=== PATIENT | male | born 1985 | race African-American/Black ===

== ENCOUNTER 2018-11-05 09:22 | Emergency (ER) | payer BC ==
[~2018-11-05] VITALS: Ht 190.5 cm; Wt 132.0 kg
[2018-11-05] MEDS ORDERED: KETOROLAC 30MG/ML VIAL IM ONE (10:15)
[2018-11-05] MEDS ORDERED: AMOXICILLIN 500 MG CAPSULE PO ONE (10:15)
[2018-11-05 10:44] VITALS: BP 160/99
== END 2018-11-05 10:46 | disposition home or self-care (01) ==
LOC: ER 09:48
DX: K04.7 Periapical abscess without sinus (principal)
CPT/HCPCS: 96372; 99283; J1885

== ENCOUNTER 2019-08-11 09:45 | Emergency (ER) | payer BC, OTHER ==
[~2019-08-11] VITALS: Ht 190.5 cm; Wt 91.0 kg
[2019-08-11] MEDS ORDERED: KETOROLAC 60MG/2ML VIAL IM ONE (11:00)
[2019-08-11 13:30] VITALS: BP 178/120
== END 2019-08-11 13:53 | disposition home or self-care (01) ==
LOC: ER 10:05
DX: M79.662 Pain in left lower leg (principal)
CPT/HCPCS: 76881; 96372; 99283; J1885

== ENCOUNTER 2019-08-14 11:46 | Emergency (ER) | payer OTHER ==
[~2019-08-14] VITALS: Ht 190.5 cm; Wt 131.0 kg
[2019-08-14] MEDS ORDERED: IBUPROFEN 600MG TABLET PO ONE (13:00)
[2019-08-14 14:35] VITALS: BP 167/94
== END 2019-08-14 14:38 | disposition home or self-care (01) ==
LOC: ER 11:46
DX: T14.8XXA Other injury of unspecified body region, initial encounter (principal); X58.XXXA Exposure to other specified factors, initial encounter; Y93.89 Activity, other specified; Y92.89 Other specified places as the place of occurrence of the external cause; Y99.8 Other external cause status
CPT/HCPCS: 29515; 73610; 99283

== ENCOUNTER → 2019-08-17 | Outpatient (CLI) | payer BC ==
[2019-08-17 15:44] LABS: BASOPHILS % 1.2 % (0.0-2.0); EOSINOPHILS % 2.6 % (0.0-5.0); HEMATOCRIT. 46.2 % (42.0-52.0); HEMOGLOBIN. 16.1 g/dL (14.0-18.0); LYMPHOCYTES % 38.5 % (20.0-50.0); MEAN CORPUSCULAR HEMOGLOBIN 27.6 pg (28.0-32.0); MEAN PLATELET VOLUME 8.7 fl (7.4-10.4); MONOCYTES % 8.7 % (2.0-8.0); PLATELET 287 x1000/uL (130-400); RED BLOOD CELL COUNT 5.85 mill/uL (4.7-6.1); RED CELL DISTRIBUTION WIDTH 13.4 % (11.6-14.6)
[2019-08-17 15:47] LABS: CHLORIDE 106 mEq/L (98-107)
[2019-08-17 15:55] LABS: LDL CHOLESTEROL 203 mg/dL (5-100)
[2019-08-17 15:56] LABS: HDL CHOLESTEROL 36 mg/dL (40-59)
[2019-08-17 15:57] LABS: T4 FREE 1.04 ng/dL (0.76-1.46)
== END | disposition home or self-care (01) ==
LOC: LAB 15:10
PROVIDERS: ATTEND Specialist
DX: E11.8 Type 2 diabetes mellitus with unspecified complications (principal); D64.9 Anemia, unspecified
CPT/HCPCS: 36415; 80053; 80061; 82306; 83036; 84439; 84443; 84481; 85025

== ENCOUNTER → 2019-08-23 | Outpatient (CLI) | payer OTHER | END | disposition home or self-care (01) | LOC: MRI 09:03 | PROVIDERS: ATTEND Family Medicine Adult Medicine | DX: S86.012A Strain of left Achilles tendon, initial encounter (principal); X58.XXXA Exposure to other specified factors, initial encounter; Y93.89 Activity, other specified; Y92.89 Other specified places as the place of occurrence of the external cause; Y99.8 Other external cause status | CPT/HCPCS: 73721 ==

== ENCOUNTER 2021-02-03 08:54 | Inpatient (IN) | payer BC, OTHER ==
[~2021-02-03] VITALS: Ht 190.5 cm; Wt 149.1 kg
[2021-02-03] MEDS ORDERED: HYDROCHLOROTHIAZIDE 25MG TABLET PO ONE (09:15)
[2021-02-03 10:31] LABS: BASOPHILS % 0.8 % (0.0-2.0); EOSINOPHILS % 2.8 % (0.0-5.0); HEMATOCRIT. 46.9 % (42.0-52.0); HEMOGLOBIN. 16.4 g/dL (14.0-18.0); LYMPHOCYTES % 37.6 % (20.0-50.0); MEAN CORPUSCULAR VOLUME 80.4 fL (80.0-94.0); MEAN PLATELET VOLUME 8.7 fl (7.4-10.4); MONOCYTES % 7.3 % (2.0-8.0); NEUTROPHILS % 51.5 % (40.0-76.0); PLATELET 226 x1000/uL (130-400); RED BLOOD CELL COUNT 5.84 mill/uL (4.7-6.1)
[2021-02-03 10:34] LABS: CHLORIDE 106 mEq/L (98-107)
[2021-02-03] MEDS ORDERED: ASPIRIN 81MG TABLET PO NR (15:15)
[2021-02-03] MEDS ORDERED: HYDROCODONE/ACETAMINOPHEN 5/325MG TABLET PO PRN (18:30)
[2021-02-03] MEDS ORDERED: ACETAMINOPHEN 325MG TABLET PO PRN (18:30)
[2021-02-03] MEDS ORDERED: ONDANSETRON HCL 4MG/2ML INJ IV PRN (18:30)
[2021-02-03] MEDS: AMLODIPINE 10MG TABLET PO SCH (18:49)
[2021-02-03 20:00] VITALS: BP_SYST 175; BP_SYST 93; BP_DIAS 109; BP_DIAS 70
[2021-02-03] MEDS: CLONIDINE 0.1MG TABLET PO PRN (20:22)
[2021-02-03] MEDS: ENOXAPARIN 30MG/0.3ML SYR SUBCUT SCH (21:28)
[2021-02-03] MEDS: HYDRALAZINE HCL 50MG TABLET PO SCH (22:22)
[2021-02-04] VITALS (7 sets, daily range): BP systolic 144–170; BP diastolic 82–108
[2021-02-04] MEDS: CLONIDINE 0.1MG TABLET PO PRN (04:06)
[2021-02-04] MEDS: HYDRALAZINE HCL 50MG TABLET PO SCH (05:54)
[2021-02-04] MEDS: AMLODIPINE 10MG TABLET PO SCH (08:32)
[2021-02-04] MEDS: ASPIRIN 81MG EC TABLET PO SCH (08:32)
[2021-02-04] MEDS: ENOXAPARIN 30MG/0.3ML SYR SUBCUT SCH (08:33)
[2021-02-04 09:23] LABS: BASOPHILS % 0.7 % (0.0-2.0); EOSINOPHILS % 2.5 % (0.0-5.0); HEMATOCRIT. 46.8 % (42.0-52.0); HEMOGLOBIN. 16.4 g/dL (14.0-18.0); MEAN CORPUSCULAR HEMOGLOBIN 27.3 pg (28.0-32.0); MEAN CORPUSCULAR VOLUME 77.7 fL (80.0-94.0); MEAN PLATELET VOLUME 8.6 fl (7.4-10.4); MONOCYTES % 4.7 % (2.0-8.0); NEUTROPHILS % 66.1 % (40.0-76.0); PLATELET 271 x1000/uL (130-400); RED BLOOD CELL COUNT 6.02 mill/uL (4.7-6.1); RED CELL DISTRIBUTION WIDTH 13.8 % (11.6-14.6)
[2021-02-04 09:26] LABS: CHLORIDE 103 mEq/L (98-107)
[2021-02-04 09:36] LABS: LDL CHOLESTEROL 197 mg/dL (5-100)
[2021-02-04 09:37] LABS: HDL CHOLESTEROL 43 mg/dL (40-59)
[2021-02-04] MEDS: LOSARTAN POTASSIUM 100 MG TABLET PO SCH (11:13)
[2021-02-04] MEDS: HYDRALAZINE HCL 100MG TABLET PO SCH ×2 (14:21→21:28)
[2021-02-04] MEDS ORDERED: METOPROLOL TARTRATE 5MG/5ML VIAL IV PRN (15:45)
[2021-02-04] MEDS: METOPROLOL TARTRATE 50MG TABLET PO SCH ×2 (16:02→21:28)
[2021-02-04] MEDS ORDERED: ATORVASTATIN CALCIUM 40MG TABLET PO SCH (21:00)
[2021-02-04] MEDS: ENOXAPARIN 40MG/0.4ML SYR SUBCUT SCH (21:28)
[2021-02-05 04:00] VITALS: BP 142/82
[2021-02-05] MEDS: HYDRALAZINE HCL 100MG TABLET PO SCH ×2 (05:53→13:43)
[2021-02-05 08:00] VITALS: BP 190/90
[2021-02-05] MEDS: LOSARTAN POTASSIUM 100 MG TABLET PO SCH (08:27)
[2021-02-05] MEDS: ASPIRIN 81MG EC TABLET PO SCH (08:27)
[2021-02-05] MEDS: AMLODIPINE 10MG TABLET PO SCH (08:28)
[2021-02-05] MEDS: ENOXAPARIN 40MG/0.4ML SYR SUBCUT SCH (08:28)
[2021-02-05] MEDS: METOPROLOL TARTRATE 50MG TABLET PO SCH (08:28)
[2021-02-05] MEDS ORDERED: REGADENOSON 0.4 MG/5 ML IV NR (09:30)
[2021-02-05 12:00] VITALS: BP 182/90
[2021-02-05] MEDS ORDERED: REGADENOSON 0.4 MG/5 ML IV ONE (12:06)
[2021-02-05 13:29] VITALS: BP 146/62
[2021-02-05] MEDS: CLONIDINE 0.1MG TABLET PO PRN (14:15)
[2021-02-05 14:57] VITALS: BP 146/62
== END 2021-02-05 15:55 | disposition home or self-care (01) | DRG 282 ==
LOC: ER 08:54 → EDBEDREQ 16:46 → EDBEDREQTM 16:46 → ENRESERV 19:16 → 5WST 20:08
PROVIDERS: ADMIT Hospitalist; ATTEND Hospitalist
DX: I16.0 Hypertensive urgency (principal); I21.A1 Myocardial infarction type 2; E78.5 Hyperlipidemia, unspecified; I10 Essential (primary) hypertension; R74.01 Elevation of levels of liver transaminase levels; R94.31 Abnormal electrocardiogram [ECG] [EKG]; Z82.49 Family history of ischemic heart disease and other diseases of the circulatory system; Z91.19 Patient's noncompliance with other medical treatment and regimen; Z88.0 Allergy status to penicillin
CPT/HCPCS: 36415; 71045; 78452; 80053; 80061; 83880; 84484; 85025; 93005; 93017; 93306; 99285; A9500; J1650; J2785; J3490

== ENCOUNTER 2022-03-09 00:32 | Emergency (ER) | payer BC ==
[~2022-03-09] VITALS: Ht 190.5 cm; Wt 140.0 kg
[2022-03-09] MEDS ORDERED: IBUP-2029 MT (00:46)
[2022-03-09] MEDS ORDERED: BENZ1LOZ73 MT (00:46)
[2022-03-09] MEDS: KETOROLAC 60MG/2ML VIAL IM ONE (01:01)
[2022-03-09 01:30] VITALS: BP 160/81
== END 2022-03-09 01:30 | disposition home or self-care (01) ==
LOC: ER 00:32
DX: J02.9 Acute pharyngitis, unspecified (principal); I10 Essential (primary) hypertension; Z88.0 Allergy status to penicillin
CPT/HCPCS: 87070; 87430; 99283